=== PATIENT | female | born 1950 | race Hispanic/Latino ===

== ENCOUNTER 2017-01-06 08:29 | Emergency (ER) | payer MEDICARE ==
[~2017-01-06] VITALS: Ht 152.4 cm; Wt 81.8 kg
[~2017-01-06 08:29] MED LIST: GLIMEPIRIDE2 MG PO; HYDROCHLORO25 MG/TAB PO; HYDROCHLOROT12.5 MG OR; LISINOPRIL20 MG PO; METFORMIN500 MG PO; PRAVASTATIN20 MG PO
[2017-01-06] MEDS ORDERED: AUGMENTIN875TAB PO (09:37)
[2017-01-06 09:40] VITALS: BP 166/74
== END 2017-01-06 09:40 | disposition home or self-care (01) ==
LOC: ED 08:29
DX: S61.152A Open bite of left thumb with damage to nail, initial encounter (principal); E11.9 Type 2 diabetes mellitus without complications; I10 Essential (primary) hypertension; Z86.73 Personal history of transient ischemic attack (TIA), and cerebral infarction without residual deficits; W54.0XXA Bitten by dog, initial encounter

== ENCOUNTER 2018-11-03 10:39 | Emergency (ER) | payer MEDICARE ==
[~2018-11-03] VITALS: Ht 152.4 cm; Wt 80.8 kg
[~2018-11-03 10:39] MED LIST changes: +AUGMENTIN875TAB PO
[2018-11-03 11:24] LABS: HEMATOCRIT 43.3 % (37.0-47.0); HEMOGLOBIN 14.6 g/dl (12.0-16.0); IMMATURE GRANULOCYTES 0.3 % (0.0-5.0); MEAN CELL VOLUME 96.4 fL CALC (80.0-100.0); MEAN CORPUSCULAR HGB 32.5 pG CALC (26.0-32.0); MEAN CORPUSCULAR HGB CONC 33.7 g/L CALC (32.0-36.0); NEUT# 3.81 thou/uL (2.00-7.15); RED BLOOD COUNT 4.49 mill/uL (4.20-5.60); RED CELL DISTRI WIDTH 12.3 % (11.5-15.5)
[2018-11-03 12:46] LABS: INTERNATIONAL NORMALIZED RATIO 0.9 RATIO (0.7-1.3); PROTHROMBIN TIME 9.9 SECONDS (9.0-12.5)
[2018-11-03 13:03] VITALS: BP 157/61
== END 2018-11-03 13:11 | disposition home or self-care (01) ==
LOC: ED 10:39
PROVIDERS: Emergency Medicine
DX: S30.1XXA Contusion of abdominal wall, initial encounter (principal); Z79.02 Long term (current) use of antithrombotics/antiplatelets

== ENCOUNTER 2020-02-28 15:18 | Emergency (ER) | payer MEDICARE ==
[2020-02-28] MEDS ORDERED: TRAMADOL HYDROC50 M1 PO (17:18)
[2020-02-28 17:42] VITALS: BP 151/63
== END 2020-02-28 17:42 | disposition home or self-care (01) ==
LOC: ED 15:18
DX: M54.5 Low back pain (principal); M25.552 Pain in left hip; M25.551 Pain in right hip; E11.9 Type 2 diabetes mellitus without complications; I10 Essential (primary) hypertension; Z86.73 Personal history of transient ischemic attack (TIA), and cerebral infarction without residual deficits; Z79.84 Long term (current) use of oral hypoglycemic drugs; W18.2XXA Fall in (into) shower or empty bathtub, initial encounter; Y93.E1 Activity, personal bathing and showering; Y92.002 Bathroom of unspecified non-institutional (private) residence as the place of occurrence of the external cause

== ENCOUNTER 2020-10-09 13:52 | Emergency (ER) | payer MEDICARE ==
[~2020-10-09] VITALS: Ht 152.4 cm; Wt 65.0 kg
[~2020-10-09 13:52] MED LIST changes: +TRAMADOL HYDROC50 M1 PO
[2020-10-09] MEDS ORDERED: METFORMIN500 M2 PO (14:24)
[2020-10-09] MEDS ORDERED: NORVASC PO (14:25)
[2020-10-09] MEDS ORDERED: MOTRIN400 MG/TAB PO (16:33)
[2020-10-09] MEDS ORDERED: CEPHALEXIN500 M1 PO (16:33)
[2020-10-09 17:26] VITALS: BP 168/77
== END 2020-10-09 17:27 | disposition home or self-care (01) ==
LOC: ED 13:52
DX: M25.551 Pain in right hip (principal); S90.861A Insect bite (nonvenomous), right foot, initial encounter; L03.115 Cellulitis of right lower limb; I10 Essential (primary) hypertension; E11.9 Type 2 diabetes mellitus without complications; W57.XXXA Bitten or stung by nonvenomous insect and other nonvenomous arthropods, initial encounter; Z86.73 Personal history of transient ischemic attack (TIA), and cerebral infarction without residual deficits; Z79.84 Long term (current) use of oral hypoglycemic drugs

== ENCOUNTER 2021-04-05 20:54 | Emergency (ER) | payer MEDICARE ==
[~2021-04-05] VITALS: Ht 152.4 cm; Wt 68.0 kg
[~2021-04-05 20:54] MED LIST changes: +CEPHALEXIN500 M1 PO; +METFORMIN500 M2 PO; +MOTRIN400 MG/TAB PO; +NORVASC PO
[2021-04-05] MEDS ORDERED: AMOXICILLIN500 M2 PO (21:26)
[2021-04-05 21:42] VITALS: BP 167/74
== END 2021-04-05 22:11 | disposition home or self-care (01) ==
LOC: ED 20:54
DX: S03.2XXA Dislocation of tooth, initial encounter (principal); E11.9 Type 2 diabetes mellitus without complications; I10 Essential (primary) hypertension; W01.0XXA Fall on same level from slipping, tripping and stumbling without subsequent striking against object, initial encounter; Y92.009 Unspecified place in unspecified non-institutional (private) residence as the place of occurrence of the external cause; Z86.73 Personal history of transient ischemic attack (TIA), and cerebral infarction without residual deficits; Z79.84 Long term (current) use of oral hypoglycemic drugs

== ENCOUNTER 2021-09-17 19:27 | Emergency (ER) | payer MEDICARE ==
[~2021-09-17] VITALS: Ht 144.8 cm; Wt 84.0 kg
[~2021-09-17 19:27] MED LIST changes: +AMOXICILLIN500 M2 PO
[2021-09-17] MEDS ORDERED: BACTRIM DS1 TAB PO (20:14)
[2021-09-17 20:35] VITALS: BP 147/68
== END 2021-09-17 20:35 | disposition home or self-care (01) ==
LOC: ED 19:27
DX: L03.114 Cellulitis of left upper limb (principal); E11.9 Type 2 diabetes mellitus without complications; I10 Essential (primary) hypertension; Z79.84 Long term (current) use of oral hypoglycemic drugs

== ENCOUNTER 2022-02-19 07:10 | Day surgery (SDC) | payer MEDICARE ==
[~2022-02-19] VITALS: Ht 144.8 cm; Wt 77.1 kg
[~2022-02-19 07:10] MED LIST changes: +BACTRIM DS1 TAB PO; +CELECOXIB100 M1 PO; +HYDROCORTISONE1 % EX; +IBANDRONATE SO150 MG PO; +LEVETIRACETAM500 M1 PO; +LEVOTHYROXINE75 MC1 PO; +LISINOP/HCTZ1 TA1 PO; +NORVASC5 M1 PO; +OMEGA 31000 MG PO; +PLAVIX75 MG PO; +PRAVASTATIN40 MG PO; +PROCTOCARE2.5 % RE; +SERTRALINE50 MG PO; +VITAMIN C250 MG PO; +VITAMIN D325 MCG PO
[2022-02-19] MEDS ORDERED: PERCOCET 5/321 COMBO PO (11:12)
[2022-02-19 13:10] VITALS: BP 136/84
== END 2022-02-19 12:50 | disposition home or self-care (01) ==
LOC: ORM 07:10
PROVIDERS: ATTEND Surgery
PROC: 0D8R3ZZ Division of Anal Sphincter, Percutaneous Approach (ICD-10-PCS; principal; 2022-02-19)
DX: K60.1 Chronic anal fissure (principal); I10 Essential (primary) hypertension; E11.9 Type 2 diabetes mellitus without complications